=== PATIENT | female | born 1985 | race Caucasian/White ===

== ENCOUNTER 2017-03-22 22:44 | Emergency (ER) | payer MEDICAID ==
--- NOTE | 2017-03-22 23:30 | EDM.PDOC ---
ED HPI GENERAL MEDICAL PROBLEM - General Chief Complaint: CATERING ATTENDANT Problem Stated Complaint: VAGINAL BLEEDING Time Seen by Provider: 03/22/17 23:29 Source of Information: Reports: Patient, Old Records, RN Notes Reviewed History Limitations: Reports: No Limitations - History of Present Illness INITIAL COMMENTS - FREE TEXT/NARRATIVE: Drove herself here Chief complaint Heavy vaginal bleeding History of present illness 32-year-old female with a history of heavy vaginal bleeding earlier this year, started having heavy bleeding with the current menses which started 2 days ago. She issues multiple tampons and pads, has felt a bit lightheaded, passing large clots. In January of this year, 2 weeks after her normal menses, she started bleeding heavily vaginally. She is seen in the emergency once, referred for gynecology, seen in emergency a second time when she was so weak at work she could hardly walk. She states she was very pale and her heart was racing. In emergency, she received intravenous saline and estrogen which controlled the bleeding. She was told she lost 2-1/2 pints of blood. No transfusion. Through February however she felt well so she canceled the scheduled laparoscopy and asked to have that scheduled for later, she is waiting for call back from her microbiology technician. She was seen by a microbiology technician and in the emergency room at [facility] in [place]. She was told to take oral iron supplements but not prescribed it and she hasn't been faithfully taking it. She's had 5 children, the last 3 by section, no miscarriages, had a tubal ligation after the last . She did not want to get as sick as she was at her second emergency visit so she is coming here earlier. Uterine Pain Score (Numeric/FACES): 5 - Related Data Allergies Allergy/AdvReac Type Severity Reaction Status Date / Time Penicillins Allergy Rash Verified 03/22/17 23:15 Sulfa (Sulfonamide Allergy Rash Verified 03/22/17 23:15 Antibiotics) Home Meds: Home Meds Iron,Carbonyl/Vit C/Vit B12/Fa [Iron 100 Plus Tablet] 1 each PO DAILY 03/22/17 [ History] medroxyPROGESTERone [Provera] 10 mg PO DAILY #5 tablet 03/23/17 [Rx] Past Medical History Other HEENT History: Teeth pulled Other OB/BYN History: C section tubal Musculoskeletal History: Reports: Fracture Other Musculoskeletal History: wrist - Past Surgical History GI Surgical History: Reports: Cholecystectomy Social & Family History - Tobacco Use Smoking Status *Q: Current Every Day Smoker Years of Tobacco use: 12 Packs/Tins Daily: 0.5 Used Tobacco, but Quit: No Second Hand Smoke Exposure: Yes - Caffeine Use Caffeine Use: Reports: Soda - Alcohol Use Days Per Week of Alcohol Use: 0 - Recreational Drug Use Recreational Drug Use: No ED ROS GENERAL - Review of Systems Review Of Systems: See Below Constitutional: Reports: Malaise, Decreased Appetite HEENT: Reports: No Symptoms Respiratory: Reports: No Symptoms Cardiovascular: Reports: No Symptoms GI/Abdominal: Reports: Abdominal Pain, Decreased Appetite, Nausea. Denies: Diarrhea, Vomiting : Reports: Irregular Menses, Other (See history of present illness). Denies: Dysuria Musculoskeletal: Reports: No Symptoms Skin: Reports: No Symptoms Neurological: Reports: Other (Lightheadedness). Denies: Confusion, Dizziness, Headache, Syncope Psychiatric: Reports: No Symptoms ED EXAM, RENAL/ - Physical Exam Exam: See Below Exam Limited By: No Limitations General Appearance: Alert, Mild Distress, Other (Looks a little pale, speaks slowly and deliberately, initially affect is fairly flat and somewhat withdrawn , vital signs are within normal limits although her diastolic is low) Eye Exam: Bilateral Eye: Normal Inspection Ears: Normal External Exam Nose: Normal Inspection Throat/Mouth: Normal Inspection Head: Atraumatic, Normocephalic Respiratory/Chest: No Respiratory Distress, No Accessory Muscle Use Cardiovascular: Normal Peripheral Pulses, Regular Rate, Rhythm GI/Abdominal: Normal Bowel Sounds, Soft, Tender (Mild, diffusely). No: Guarding , Rigid, Rebound Extremities: Normal Inspection, Normal Capillary Refill Neurological: Alert, Oriented, Normal Cognition Skin Exam: Warm, Dry, Intact, Pallor Course - Vital Signs Last Recorded V/S: Last Vital Signs Temp 36.7 C 03/22/17 23:24 Pulse 84 03/22/17 23:24 Resp 16 03/22/17 23:24 BP 112/48 L 03/22/17 23:24 Pulse Ox 96 03/22/17 23:24 - Orders/Labs/Meds Orders: Active Orders 24 hr Category Date Time Status Peripheral IV Care [RC] . DIRECTED Care 03/22/17 23:55 Active Sodium Chloride 0.9% [Normal Saline] 1,000 ml Med 03/22/17 23:45 Active IV ASDIRECTED Sodium Chloride 0.9% [Saline Flush] Med 03/22/17 23:55 Active 10 ml FLUSH ASDIRECTED PRN Peripheral IV Insertion Adult [OM.PC] Routine Oth 03/22/17 23:55 Ordered Medication Orders Sodium Chloride (Normal Saline) 1,000 mls @ 500 mls/hr IV ASDIRECTED CHRISTIAN Last Admin: 03/23/17 00:14 Dose: 500 mls/hr Sodium Chloride (Saline Flush) 10 ml FLUSH ASDIRECTED PRN PRN Reason: Keep Vein Open Labs: Laboratory Tests 03/22/17 03/22/17 03/23/17 Range/Units 00:01 00:01 00:10 WBC 8.4 (4.5-11.0) K/uL RBC 4.14 (3.30-5.50) M/uL Hgb 11.1 L D (12.0-15.0) g/dL Hct 34.7 L (36.0-48.0) % MCV 84 (80-98) fL MCH 27 (27-31) pg MCHC 32 (32-36) % Plt Count 407 H (150-400) K/uL Sodium 139 L (140-148) mmol/L Potassium 3.6 (3.6-5.2) mmol/L Chloride 105 (100-108) mmol/L Carbon Dioxide 26 (21-32) mmol/L Anion Gap 11.6 (5.0-14.0) mmol/L BUN 11 (7-18) mg/dL Creatinine 0.7 (0.6-1.0) mg/dL Est Cr Clr Drug Dosing 84.41 mL/min Estimated GFR (MDRD) > 60 (>60) Glucose 89 (74-106) mg/dL Calcium 8.5 (8.5-10.1) mg/dL HCG, Qual Negative Meds: Medications Generic Name Dose Route Start Last Admin Trade Name Freq PRN Reason Stop Dose Admin Sodium Chloride 1,000 mls @ 500 mls/hr 03/22/17 23:45 03/23/17 00:14 Normal Saline IV 500 mls/hr ASDIRECTED CHRISTIAN Administration Sodium Chloride 10 ml 03/22/17 23:55 Saline Flush FLUSH ASDIRECTED PRN Keep Vein Open Discontinued Medications Generic Name Dose Route Start Last Admin Trade Name Halima PRN Reason Stop Dose Admin Medroxyprogesterone Acetate 10 mg 03/23/17 00:52 03/23/17 01:03 Provera PO 03/23/17 00:53 10 mg ONETIME ONE Administration Ondansetron HCl 4 mg 03/23/17 00:03 03/23/17 00:22 Zofran Odt PO 03/23/17 00:04 4 mg ONETIME ONE Administration - Re-Assessments/Exams Free Text/Narrative Re-Assessment/Exam: 03/23/17 00:02 32-year-old female with recent onset of heavy vaginal bleeding. Current episode started 2 days ago. Intravenous saline ordered, ondansetron by mouth Departure - Departure Time of Disposition: 01:27 Disposition: Home, Self-Care 01 Condition: Good Clinical Impression: Menorrhagia Qualifiers: Menorrahagia type: with regular cycle Qualified Code(s): N92.0 - Excessive and frequent menstruation with regular cycle - Discharge Information Prescriptions: medroxyPROGESTERone [Provera] 10 mg PO DAILY #5 tablet Instructions: Menorrhagia, Abnormal Uterine Bleeding, [id number] Referrals: Jonathan Ansari MD [Primary Care Provider] - Forms: ED Department Discharge - My Orders Last 24 Hours: My Active Orders 03/22/17 23:45 Sodium Chloride 0.9% [Normal Saline] 1,000 ml IV ASDIRECTED 03/22/17 23:55 Peripheral IV Care [RC] . DIRECTED Sodium Chloride 0.9% [Saline Flush] 10 ml FLUSH ASDIRECTED PRN Peripheral IV Insertion Adult [OM.PC] Routine - Assessment/Plan Last 24 Hours: My Active Orders 03/22/17 23:45 Sodium Chloride 0.9% [Normal Saline] 1,000 ml IV ASDIRECTED 03/22/17 23:55 Peripheral IV Care [RC] . DIRECTED Sodium Chloride 0.9% [Saline Flush] 10 ml FLUSH ASDIRECTED PRN Peripheral IV Insertion Adult [OM.PC] Routine
[2017-03-22 23:42] VITALS: BP 112/48
[2017-03-22] MEDS ORDERED: Sodium Chloride 0.9% 1,000 ML IV SCH (23:45)
[2017-03-22] MEDS ORDERED: Sodium Chloride 0.9% 10 ML Syringe FLUSH PRN (23:55)
[2017-03-23] MEDS ORDERED: Ondansetron 4 MG Tab.DIS PO ONE (00:03)
== END 2017-03-23 01:46 | disposition home or self-care (01) ==
LOC: JP.ED 22:44
DX: N92.0 Excessive and frequent menstruation with regular cycle (principal); F17.210 Nicotine dependence, cigarettes, uncomplicated; Z90.49 Acquired absence of other specified parts of digestive tract; Z98.51 Tubal ligation status; Z98.890 Other specified postprocedural states; Z79.899 Other long term (current) drug therapy; Z88.0 Allergy status to penicillin
CPT/HCPCS: 36415; 80048; 84703; 85027; 96360; 96361; 99284; A9270; J7040